=== PATIENT | female | born 1970 | race Two or more races ===

== ENCOUNTER 2017-10-18 11:13 | Inpatient (IN) | payer SELFPAY ==
[2017-10-18] MEDS ORDERED: 0.9 % SODIUM CHLORIDE 10 ML DISP.SYRIN. IV (11:30)
[2017-10-18] MEDS: IV NORMAL SALINE 1000ML BAG 1,000 ML IV ×3 (11:35→21:30)
[2017-10-18] MEDS: ASPIRIN CHEWABLE 81 MG TABLET. PO (11:36)
[2017-10-18] MEDS: HYDROmorphone 2 MG/ML VIAL IV/SQ (11:39)
[2017-10-18 11:44] LABS: ADD MAN DIFF? NO
[2017-10-18 11:59] LABS: BASO # 0.1 x10^3/uL (0.0-0.2); BASO % 1 % (0-3); EOS # 0.1 x10^3/uL (0.0-0.7); EOS % 1 % (0-3); HEMATOCRIT 47.5 % (36.0-47.0); HEMOGLOBIN 16.3 g/dL (12.0-15.5); LYMPH # 2.6 x10^3/uL (1.0-4.8); LYMPH % 26 % (24-48); MEAN CORPUSCULAR HEMOGLOBIN 31 pg (25-35); MEAN CORPUSCULAR HGB CONC 34 g/dL (31-37); MEAN CORPUSCULAR VOLUME 90 fL (79-100); MONO # 0.5 x10^3/uL (0.0-1.1); MONO % 5 % (0-9); NEUT # 6.8 x10^3uL (1.8-7.7); NEUT % 67 % (31-73); PLATELET COUNT 237 x10^3/uL (140-400); RED BLOOD COUNT 5.26 x10^6/uL (3.50-5.40); RED CELL DISTRIBUTION WIDTH 12.9 % (11.5-14.5); WHITE BLOOD COUNT 10.1 x10^3/uL (4.0-11.0)
[2017-10-18 12:12] LABS: D-DIMER 0.27 ug/mlFEU (0.00-0.50)
[2017-10-18 12:13] LABS: ANION GAP 14 (6-14); BLOOD UREA NITROGEN 9 mg/dL (7-20); CALCIUM 9.9 mg/dL (8.5-10.1); CARBON DIOXIDE 24 mmol/L (21-32); CHLORIDE 102 mmol/L (98-107); CREATININE 0.5 mg/dL (0.6-1.0); GFR 131.1; GLUCOSE 102 mg/dL (70-99); POTASSIUM 3.6 mmol/L (3.5-5.1); SODIUM 140 mmol/L (136-145)
[2017-10-18 12:19] LABS: ALBUMIN 4.1 g/dL (3.4-5.0); ALK PHOS 117 U/L (46-116); ALT (SGPT) 31 U/L (14-59); AST (SGOT) 23 U/L (15-37); DIRECT BILIRUBIN 0.1 mg/dL (0.0-0.2); LIPASE 133 U/L (73-393); MAGNESIUM 2.1 mg/dL (1.8-2.4); TOTAL BILIRUBIN 0.3 mg/dL (0.2-1.0); TOTAL PROTEIN 7.9 g/dL (6.4-8.2)
[2017-10-18 12:32] LABS: TROPONINI < 0.017 ng/mL (0.000-0.055)
[2017-10-18 12:32] LABS: INFLUENZA A PATIENT NEGATIVE (NEGATIVE); INFLUENZA B PATIENT NEGATIVE (NEGATIVE)
[2017-10-18 12:33] LABS: OBC FLU VALID
[2017-10-18 12:36] LABS: CKMB MASS 0.8 ng/mL (0.0-3.6); CREATINE KINASE 82 U/L (26-192)
[2017-10-18 12:36] LABS: NT-PRO BNP 60 pg/mL (0-124); THYROID STIM HORMONE (TSH) 1.226 uIU/mL (0.358-3.74)
[2017-10-18] MEDS ORDERED: MORPHINE SULFATE 4 MG/ML DISP.SYRIN. IV (13:30)
[2017-10-18] MEDS ORDERED: NITROGLYCERIN SUBLINGUAL 0.4 MG BOTTLE OF 25. SL (13:30)
[2017-10-18] MEDS: ONDANSETRON PF 4 MG/2 ML VIAL. IV (14:51)
[2017-10-18 14:52] LABS: CHOLESTEROL 211 mg/dL (0-200); HDLC 59 mg/dL (40-60); LDLC 123 mg/dL (0-100); NON-HDL CHOLESTEROL 152 mg/dL (0-129); TRIGLYCERIDES 147 mg/dL (0-150); VLDLC 29 mg/dL (0-40)
[2017-10-18 14:54] LABS: CHOLESTEROL/HDL RATIO 3.6
[2017-10-18 17:58] LABS: TROPONINI < 0.017 ng/mL (0.000-0.055)
[2017-10-18] MEDS: ACETAMINOPHEN 325 MG TABLET. PO (18:08)
[2017-10-18] MEDS: PANTOPRAZOLE 40 MG TABLET.DR. PO (18:10)
[2017-10-18] MEDS: ENOXAPARIN 40 MG/0.4 ML SYRINGE. SQ (18:12)
[2017-10-18] MEDS ORDERED: MAG HYDROX/ALUMINUM HYD/SIMETH 30 ML ORAL.SUSP PO (18:30)
[2017-10-18] MEDS ORDERED: PROMETHAZINE 12.5 MG TABLET. PO (18:30)
[2017-10-18] MEDS ORDERED: PANTOPRAZOLE IV PUSH 40 MG VIAL. IVP (19:10)
[2017-10-18] MEDS ORDERED: ENOXAPARIN 40 MG/0.4 ML SYRINGE. SQ (19:45)
[2017-10-18 19:59] LABS: TROPONINI < 0.017 ng/mL (0.000-0.055)
[2017-10-19 01:21] LABS: BACTERIA,URINE 0 /HPF (0-FEW); BILIRUBIN,URINE NEGATIVE (NEG); CLARITY,URINE CLEAR; COLOR,URINE YELLOW; GLUCOSE,URINE NEGATIVE (NEG); NITRITE,URINE NEGATIVE (NEG); PROTEIN,URINE NEGATIVE (NEG-TRACE); RBC,URINE OCC /HPF (0-2); SQUAMOUS EPITHELIAL CELL,UR FEW /LPF; UROBILINOGEN,URINE 0.2 mg/dL (0.2 mg/dL); WBC,URINE OCC /HPF (0-4)
[2017-10-19 03:52] LABS: ADD MAN DIFF? NO
[2017-10-19 04:06] LABS: BASO # 0.1 x10^3/uL (0.0-0.2); BASO % 1 % (0-3); EOS # 0.2 x10^3/uL (0.0-0.7); EOS % 2 % (0-3); HEMATOCRIT 39.8 % (36.0-47.0); HEMOGLOBIN 14.1 g/dL (12.0-15.5); LYMPH # 3.3 x10^3/uL (1.0-4.8); LYMPH % 34 % (24-48); MEAN CORPUSCULAR HEMOGLOBIN 32 pg (25-35); MEAN CORPUSCULAR HGB CONC 35 g/dL (31-37); MEAN CORPUSCULAR VOLUME 91 fL (79-100); MONO # 0.6 x10^3/uL (0.0-1.1); MONO % 6 % (0-9); NEUT # 5.5 x10^3uL (1.8-7.7); NEUT % 57 % (31-73); PLATELET COUNT 227 x10^3/uL (140-400); RED BLOOD COUNT 4.39 x10^6/uL (3.50-5.40); RED CELL DISTRIBUTION WIDTH 12.8 % (11.5-14.5); WHITE BLOOD COUNT 9.6 x10^3/uL (4.0-11.0)
[2017-10-19] MEDS: IV NORMAL SALINE 1000ML BAG 1,000 ML IV (05:01)
[2017-10-19 05:03] LABS: ANION GAP 11 (6-14); BLOOD UREA NITROGEN 8 mg/dL (7-20); CALCIUM 8.9 mg/dL (8.5-10.1); CARBON DIOXIDE 24 mmol/L (21-32); CHLORIDE 106 mmol/L (98-107); CREATININE 0.4 mg/dL (0.6-1.0); GFR 169.7; GLUCOSE 92 mg/dL (70-99); POTASSIUM 3.8 mmol/L (3.5-5.1); SODIUM 141 mmol/L (136-145)
[2017-10-19 05:16] LABS: TROPONINI < 0.017 ng/mL (0.000-0.055)
[2017-10-19] MEDS ORDERED: PANTOPRAZOLE IV PUSH 40 MG VIAL. IVP (07:30)
[2017-10-19] MEDS ORDERED: PANTOPRAZOLE 40 MG TABLET.DR. PO (07:30)
[2017-10-19] MEDS: ASPIRIN ENTERIC COATED 81 MG TABLET.DR. PO (08:39)
[2017-10-19] MEDS: PANTOPRAZOLE 40 MG TABLET.DR. PO (08:41)
[2017-10-19] MEDS: amLODIPine BESYLATE 5 MG TABLET PO (08:41)
[2017-10-19] MEDS ORDERED: amLODIPine BESYLATE 10 MG TABLET PO (09:00)
[2017-10-19] MEDS: ACETAMINOPHEN 325 MG TABLET. PO (10:39)
== END 2017-10-19 15:20 | disposition home or self-care (01) | DRG 66 ==
LOC: ER 11:13 → 2 NORTH 12:19
DX: I63.9 Cerebral infarction, unspecified (principal); F44.4 Conversion disorder with motor symptom or deficit; K21.9 Gastro-esophageal reflux disease without esophagitis; E66.9 Obesity, unspecified; R07.89 Other chest pain; F17.210 Nicotine dependence, cigarettes, uncomplicated; G44.209 Tension-type headache, unspecified, not intractable; I10 Essential (primary) hypertension; M54.2 Cervicalgia; R07.81 Pleurodynia; Z82.49 Family history of ischemic heart disease and other diseases of the circulatory system; Z68.29 Body mass index [BMI] 29.0-29.9, adult
CPT/HCPCS: 36415; 70450; 70551; 71045; 80048; 80061; 80076; 81001; 82553; 83690; 83735; 83880; 84443; 84484; 85025; 85379; 87804; 87804-59; 92610-GN; 93005; 93306; 93880; 96361; 96374; 96375; 97165-GO; 99285-25; 99406; J1170; J1650; J2060; J2405; J7030